=== PATIENT | male | born 1960 | race Caucasian/White ===

== ENCOUNTER 2021-11-14 15:21 | Inpatient (IN) ==
[2021-11-14] MEDS ORDERED: Furosemide 40 MG/4 ML VIAL IVP ONE (16:23)
[2021-11-14 16:34] LABS: Basophils # 0.1 K/mcL (0.0-0.2); Basophils % 0.6 %; Eosinophils # 0.3 K/mcL (0.0-0.6); Eosinophils % 2.8 %; Hemoglobin 17.6 g/dL (12.9-16.9); Immature Granulocytes % 0.4 % (0-4); Immature Platelets 5.7 % (1.1-6.1); Lymphocytes # 1.8 K/mcL (0.6-4.6); Lymphocytes % 19.7 %; Mean Corpuscular Hemoglobin 30.9 pg (28.0-33.3); Mean Corpuscular Volume 96.5 fL (83.0-100.0); Mean Platelet Volume 10.4 fL (9.4-12.4); Monocytes # 0.7 K/mcL (0.0-1.3); Monocytes % 7.3 %; Neutrophils # 6.3 K/mcL (1.6-8.9); Platelet Count 135 K/mcL (140-400); Red Cell Distribution Width 14.1 % (11.5-14.5); Segmented Neutrophils % 69.2 %; White Blood Count 9.1 K/mcL (4.3-11.1)
[2021-11-14 18:21] LABS: BUN/Creatinine Ratio 14 (6-26); Blood Urea Nitrogen 14 mg/dL (8-23); Calcium 8.7 mg/dL (8.6-10.3); Carbon Dioxide 34 mEq/L (23-29); Chloride 101 mEq/L (98-107); Glucose 104 mg/dL (70-105); Osmolality,Calculated 291 (280-300); Potassium 4.3 mEq/L (3.5-5.1); Sodium 140 mEq/L (136-145); Troponin I 0.03 ng/mL (< 0.04); eGFR For African Americans > 60 (> 60); eGFR For Non-African Americans > 60 (> 60)
[2021-11-14] MEDS ORDERED: Acetaminophen 325 MG TABLET PO PRN (19:32)
[2021-11-14] MEDS ORDERED: Naloxone 0.4 MG/ML INJ IVP PRN (19:32)
[2021-11-14] MEDS ORDERED: *HR* Promethazine 25 MG/ML VIAL IM PRN (19:32)
[2021-11-14] MEDS ORDERED: Ondansetron 4 MG/2 ML VIAL IVP PRN (19:32)
[2021-11-14] MEDS ORDERED: Melatonin 3 MG TABLET PO PRN (19:32)
[2021-11-14] MEDS ORDERED: *HR* HYDROcodone/Acet 5/325 mg TABLET PO PRN (19:32)
[2021-11-14] MEDS ORDERED: *HR* OxyCODONE Immed Rel 5 MG TABLET PO PRN (19:32)
[2021-11-14 20:39] LABS: Influenza A PCR Negative (Negative); Influenza B PCR Negative (Negative); Resp. Syncytial Virus PCR Negative (Negative); SARS-CoV-2 by PCR (In House) Negative (Negative)
[2021-11-14 20:44] LABS: ABG Base Excess 7 mEq/L (-2 to 3); ABG HCO3 41 mEq/L (21-27); ABG Oxygen Saturation 95 % (95-98); ABG PCO2 103 mmHg (35-45); ABG PH 7.21 pH Units (7.32-7.45); ABG PO2 96 mmHg (85-104); ABG TCO2 45 mEq/L (20-26)
[2021-11-14] MEDS ORDERED: Perflutren Lipid Microsphere 1.3 ML in 0.9 % Sodium Chloride 8.7 ML IVP PRN (20:44)
[2021-11-15] MEDS: *HR* Enoxaparin 40 MG/0.4 ML SYRINGE SQ SCH ×3 (02:41→19:27)
[2021-11-15 03:06] LABS: VBG HCO3 37 mEq/L (21-27); VBG PCO2 83 mmHg (41-51); VBG PH 7.26 pH Units (7.32-7.42); VBG PO2 49 mmHg (25-50)
[2021-11-15 03:12] LABS: INR 1.2; Prothrombin Time 12.9 Seconds (9.4-12.1)
[2021-11-15 03:15] LABS: Basophils % 0.3 %; Eosinophils # 0.2 K/mcL (0.0-0.6); Eosinophils % 2.3 %; Hematocrit 53.2 % (37.5-50.1); Hemoglobin 16.3 g/dL (12.9-16.9); Immature Granulocytes % 0.3 % (0-4); Immature Platelets 5.5 % (1.1-6.1); Lymphocytes # 1.4 K/mcL (0.6-4.6); Lymphocytes % 15.7 %; Mean Corpuscular HGB Conc 30.6 g/dL (31.6-35.5); Mean Corpuscular Hemoglobin 30.5 pg (28.0-33.3); Mean Corpuscular Volume 99.6 fL (83.0-100.0); Mean Platelet Volume 10.5 fL (9.4-12.4); Monocytes # 0.7 K/mcL (0.0-1.3); Monocytes % 7.8 %; Neutrophils # 6.3 K/mcL (1.6-8.9); Platelet Count 133 K/mcL (140-400); Red Blood Count 5.34 M/mcL (4.19-5.50); Red Cell Distribution Width 14.3 % (11.5-14.5); Segmented Neutrophils % 73.6 %; White Blood Count 8.6 K/mcL (4.3-11.1)
[2021-11-15 03:37] LABS: Alanine Aminotransferase 28 Units/L (7-52); Albumin 3.8 g/dL (3.5-5.7); Albumin/Globulin Ratio 1.3 (1.1-2.2); Alkaline Phosphatase 59 Units/L (34-104); Aspartate Amino Transferase 21 Units/L (13-39); BUN/Creatinine Ratio 13 (6-26); Bilirubin,Total 1.1 mg/dL (0.3-1.0); Blood Urea Nitrogen 14 mg/dL (8-23); Calcium 8.4 mg/dL (8.6-10.3); Carbon Dioxide 36 mEq/L (23-29); Chloride 99 mEq/L (98-107); Globulin 2.9 g/dL (2.4-3.5); Glucose 112 mg/dL (70-105); Osmolality,Calculated 295 (280-300); Phosphorous 4.1 mg/dL (2.7-4.5); Potassium 3.9 mEq/L (3.5-5.1); Sodium 142 mEq/L (136-145); Total Protein 6.7 g/dL (6.4-8.9); eGFR For African Americans > 60 (> 60); eGFR For Non-African Americans > 60 (> 60)
[2021-11-15] MEDS: Furosemide 40 MG/4 ML VIAL IVP SCH ×2 (08:28→16:38)
[2021-11-15 10:19] LABS: VBG HCO3 40 mEq/L (21-27); VBG PCO2 86 mmHg (41-51); VBG PH 7.27 pH Units (7.32-7.42); VBG PO2 54 mmHg (25-50)
[2021-11-15 12:35] LABS: VBG HCO3 42 mEq/L (21-27); VBG PCO2 93 mmHg (41-51); VBG PH 7.26 pH Units (7.32-7.42); VBG PO2 38 mmHg (25-50)
[2021-11-15] MEDS: carvediloL 25 MG TABLET PO SCH (16:37)
[2021-11-16 04:06] LABS: Hematocrit 50.5 % (37.5-50.1); Immature Platelets 5.7 % (1.1-6.1); Mean Corpuscular HGB Conc 31.7 g/dL (31.6-35.5); Mean Corpuscular Hemoglobin 31.1 pg (28.0-33.3); Mean Corpuscular Volume 98.2 fL (83.0-100.0); Mean Platelet Volume 10.4 fL (9.4-12.4); Red Blood Count 5.14 M/mcL (4.19-5.50); Red Cell Distribution Width 14.6 % (11.5-14.5); White Blood Count 8.5 K/mcL (4.3-11.1)
[2021-11-16 04:20] LABS: VBG HCO3 39 mEq/L (21-27); VBG PCO2 86 mmHg (41-51); VBG PH 7.26 pH Units (7.32-7.42); VBG PO2 76 mmHg (25-50)
[2021-11-16 04:32] LABS: BUN/Creatinine Ratio 16 (6-26); Blood Urea Nitrogen 17 mg/dL (8-23); Calcium 8.3 mg/dL (8.6-10.3); Carbon Dioxide 38 mEq/L (23-29); Chloride 98 mEq/L (98-107); Glucose 107 mg/dL (70-105); Osmolality,Calculated 292 (280-300); Potassium 3.6 mEq/L (3.5-5.1); Sodium 140 mEq/L (136-145); eGFR For African Americans > 60 (> 60); eGFR For Non-African Americans > 60 (> 60)
[2021-11-16] MEDS: Furosemide 40 MG/4 ML VIAL IVP SCH ×2 (08:07→16:43)
[2021-11-16] MEDS: carvediloL 25 MG TABLET PO SCH ×2 (08:08→16:42)
[2021-11-16] MEDS: *HR* Enoxaparin 40 MG/0.4 ML SYRINGE SQ SCH ×2 (08:08→19:30)
[2021-11-16] MEDS: NIFEdipine XL (24 HR) 60 MG TAB.ER.24 PO SCH ×2 (10:20→12:45)
[2021-11-17 03:12] LABS: Hematocrit 49.4 % (37.5-50.1); Hemoglobin 15.5 g/dL (12.9-16.9); Mean Corpuscular HGB Conc 31.4 g/dL (31.6-35.5); Mean Corpuscular Hemoglobin 30.9 pg (28.0-33.3); Mean Corpuscular Volume 98.4 fL (83.0-100.0); Mean Platelet Volume 10.8 fL (9.4-12.4); Platelet Count 131 K/mcL (140-400); Red Blood Count 5.02 M/mcL (4.19-5.50); Red Cell Distribution Width 14.3 % (11.5-14.5); White Blood Count 8.1 K/mcL (4.3-11.1)
[2021-11-17 03:34] LABS: BUN/Creatinine Ratio 19 (6-26); Blood Urea Nitrogen 17 mg/dL (8-23); Calcium 8.4 mg/dL (8.6-10.3); Carbon Dioxide 40 mEq/L (23-29); Chloride 98 mEq/L (98-107); Glucose 109 mg/dL (70-105); Magnesium 2.2 mg/dL (1.6-2.6); Osmolality,Calculated 294 (280-300); Potassium 3.7 mEq/L (3.5-5.1); Sodium 141 mEq/L (136-145); eGFR For African Americans > 60 (> 60); eGFR For Non-African Americans > 60 (> 60)
[2021-11-17 03:35] LABS: VBG HCO3 39 mEq/L (21-27); VBG PCO2 88 mmHg (41-51); VBG PH 7.26 pH Units (7.32-7.42); VBG PO2 82 mmHg (25-50)
[2021-11-17] MEDS: *HR* Enoxaparin 40 MG/0.4 ML SYRINGE SQ SCH ×2 (08:34→20:26)
[2021-11-17] MEDS: carvediloL 25 MG TABLET PO SCH ×2 (08:34→20:26)
[2021-11-17] MEDS: NIFEdipine XL (24 HR) 60 MG TAB.ER.24 PO SCH (08:35)
[2021-11-17] MEDS: Furosemide 40 MG/4 ML VIAL IVP SCH ×2 (08:36→20:26)
[2021-11-18] MEDS: NIFEdipine XL (24 HR) 60 MG TAB.ER.24 PO SCH (08:09)
[2021-11-18] MEDS: carvediloL 25 MG TABLET PO SCH ×2 (08:09→17:00)
[2021-11-18] MEDS: Furosemide 40 MG/4 ML VIAL IVP SCH (08:10)
[2021-11-18] MEDS: *HR* Enoxaparin 40 MG/0.4 ML SYRINGE SQ SCH ×2 (08:10→21:15)
[2021-11-18 08:53] LABS: Hematocrit 51.4 % (37.5-50.1); Hemoglobin 15.9 g/dL (12.9-16.9); Mean Corpuscular HGB Conc 30.9 g/dL (31.6-35.5); Mean Corpuscular Hemoglobin 30.8 pg (28.0-33.3); Mean Corpuscular Volume 99.4 fL (83.0-100.0); Mean Platelet Volume 10.7 fL (9.4-12.4); Platelet Count 135 K/mcL (140-400); Red Blood Count 5.17 M/mcL (4.19-5.50); Red Cell Distribution Width 14.2 % (11.5-14.5); White Blood Count 7.2 K/mcL (4.3-11.1)
[2021-11-18 09:08] LABS: BUN/Creatinine Ratio 17 (6-26); Blood Urea Nitrogen 15 mg/dL (8-23); Calcium 8.4 mg/dL (8.6-10.3); Carbon Dioxide 39 mEq/L (23-29); Chloride 98 mEq/L (98-107); Glucose 105 mg/dL (70-105); Osmolality,Calculated 287 (280-300); Potassium 3.9 mEq/L (3.5-5.1); Sodium 138 mEq/L (136-145); eGFR For African Americans > 60 (> 60); eGFR For Non-African Americans > 60 (> 60)
[2021-11-18] MEDS ORDERED: Furosemide 40 MG/4 ML VIAL IVP SCH (12:00)
[2021-11-18 12:15] LABS: VBG HCO3 39 mEq/L (21-27); VBG PCO2 76 mmHg (41-51); VBG PH 7.32 pH Units (7.32-7.42); VBG PO2 80 mmHg (25-50)
[2021-11-18] MEDS ORDERED: Furosemide 80 MG in 0.9 % Sodium Chloride 50 ML IVPB ONE (13:30)
[2021-11-18] MEDS ORDERED: Bumetanide 1 MG/4 ML VIAL IVP SCH ×2 (17:00→20:00)
[2021-11-18] MEDS ORDERED: Furosemide 40 MG/4 ML VIAL IVP ONE (18:00)
[2021-11-19 03:59] VITALS: PULSE 72
[2021-11-19 04:48] LABS: Hematocrit 51.1 % (37.5-50.1); Hemoglobin 15.5 g/dL (12.9-16.9); Mean Corpuscular HGB Conc 30.3 g/dL (31.6-35.5); Mean Corpuscular Hemoglobin 30.6 pg (28.0-33.3); Mean Corpuscular Volume 100.8 fL (83.0-100.0); Platelet Count 140 K/mcL (140-400); Red Blood Count 5.07 M/mcL (4.19-5.50); Red Cell Distribution Width 14.1 % (11.5-14.5); White Blood Count 7.2 K/mcL (4.3-11.1)
[2021-11-19 05:07] LABS: BUN/Creatinine Ratio 20 (6-26); Blood Urea Nitrogen 19 mg/dL (8-23); Calcium 8.5 mg/dL (8.6-10.3); Carbon Dioxide 39 mEq/L (23-29); Chloride 98 mEq/L (98-107); Glucose 101 mg/dL (70-105); Osmolality,Calculated 292 (280-300); Potassium 3.7 mEq/L (3.5-5.1); Sodium 140 mEq/L (136-145); eGFR For African Americans > 60 (> 60); eGFR For Non-African Americans > 60 (> 60)
[2021-11-19] MEDS: NIFEdipine XL (24 HR) 60 MG TAB.ER.24 PO SCH (07:37)
[2021-11-19] MEDS: *HR* Enoxaparin 40 MG/0.4 ML SYRINGE SQ SCH (07:37)
[2021-11-19] MEDS: carvediloL 25 MG TABLET PO SCH ×2 (07:37→15:46)
[2021-11-19 07:39] VITALS: BP 169/94; TEMP 97; O2SAT 95
[2021-11-19] MEDS ORDERED: Bumetanide 1 MG TABLET PO SCH (08:00)
[2021-11-19] MEDS ORDERED: Torsemide 20 MG TABLET PO SCH ×3 (09:00→17:00)
== END 2021-11-19 17:00 | disposition home or self-care (01) | DRG 291 ==
LOC: EMEROOARM 15:21 → 2NENU 15:21 → 2ANU 15:21 → SUATTDRO 20:55 → 2NNU 23:39 → 2NENU 11-18 21:28
PROVIDERS: ADMIT Internal Medicine; ATTEND Student in an Organized Health Care Education/Training Program